=== PATIENT | male | born 2000 | race Two or more races ===

== ENCOUNTER 2024-11-06 23:29 | Emergency (ER) | payer MEDICAID ==
[~2024-11-06] VITALS: Ht 175.3 cm; Wt 81.8 kg
[2024-11-06 23:31] VITALS: TEMP 98.2
[2024-11-07 01:13] VITALS: BP 119/65; PULSE 81; RESP 16; O2SAT 97
== END 2024-11-07 01:23 | disposition home or self-care (01) ==
LOC: EMS 23:29
DX: G25.2 Other specified forms of tremor (principal); F31.9 Bipolar disorder, unspecified; F41.9 Anxiety disorder, unspecified
CPT/HCPCS: 99283